=== PATIENT | male | born 1965 | race Caucasian/White ===

== ENCOUNTER 2017-03-28 08:00 | Day surgery (SDC) | payer BC ==
[2017-03-28] MEDS ORDERED: Lactated Ringers 1,000 ML IV SCH (09:00)
[2017-03-28] MEDS ORDERED: Propofol 200 MG/20 ML SDV IV ONE (10:00)
--- NOTE | 2017-03-28 10:58 | PCM.OPNOTE ---
- General Post-Op/Procedure Note Date of Surgery/Procedure: 03/28/17 Operative Procedure(s): c scope Findings: no abnl Pre Op Diagnosis: screening Post-Op Diagnosis: no exam Anesthesia Technique: MAC Primary Surgeon: Mikey Gonzalez Anesthesia Provider: Selena Benavides Pathology: none Complications: None Condition: Good Free Text/Narrative:: see dictation
--- NOTE | 2017-03-28 10:59 | OR ---
DATE OF OPERATION: 03/28/2017 SURGEON: Mikey Gonzalez MD PROCEDURE PERFORMED: Screening colonoscopy. PREOPERATIVE DIAGNOSIS: Need for screening C scope. POSTOPERATIVE DIAGNOSIS: Normal exam. INDICATIONS FOR PROCEDURE: This is a 52-year-old white male who presents for his initial screening colonoscopy. He was offered and accepted same. DESCRIPTION OF OPERATION: After an excellent IV sedation was administered, digital rectal exam was performed. No marked abnormality was noted. Flexible colonoscope was inserted and advanced to the cecum without difficulty. The prep was excellent. The following findings were noted: Ascending colon, unremarkable. Transverse colon, unremarkable. Descending colon, unremarkable. Sigmoid and rectum unremarkable. Colon was deflated. The scope was removed. The patient tolerated procedure well. RECOMMENDATIONS: Repeat colonoscopy in 10 years. /[id number] TINO/CARMINA
== END 2017-03-28 11:51 | disposition home or self-care (01) ==
LOC: FB.SDS 08:00
PROVIDERS: ATTEND Surgery
DX: Z12.11 Encounter for screening for malignant neoplasm of colon (principal); I10 Essential (primary) hypertension; E78.5 Hyperlipidemia, unspecified; Z88.0 Allergy status to penicillin; Z88.8 Allergy status to other drugs, medicaments and biological substances; Z79.899 Other long term (current) drug therapy; Z90.49 Acquired absence of other specified parts of digestive tract
CPT/HCPCS: 45378; J7120; J2704

== ENCOUNTER 2017-03-31 14:24 | Emergency (ER) | payer BC ==
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
[2017-03-31] MEDS ORDERED: Labetalol 20 MG/4 ML Syringe IVPUSH STA (15:32)
[2017-03-31] MEDS ORDERED: hydrALAZINE 20 MG/ML SDV IVPUSH ONE (16:20)
== END 2017-03-31 16:40 | disposition left against medical advice (07) ==
LOC: FB.ED 14:24
DX: I62.9 Nontraumatic intracranial hemorrhage, unspecified (principal); I16.0 Hypertensive urgency; E78.00 Pure hypercholesterolemia, unspecified; I10 Essential (primary) hypertension; E66.9 Obesity, unspecified; Z79.899 Other long term (current) drug therapy; Z88.0 Allergy status to penicillin; Z88.6 Allergy status to analgesic agent
CPT/HCPCS: 36415; 70450; 72125; 72128; 72131; 80048; 82962; 84484; 85025; 85610; 93005; 96374; 96375; 99285; J0360; 93010